=== PATIENT | male | born 1985 | race Caucasian/White ===

== ENCOUNTER 2022-04-28 11:33 | Outpatient (CLI) | payer OTHER | END 2022-04-28 11:34 | disposition home or self-care (01) | LOC: LABBT 11:33 | PROVIDERS: ATTEND Urology | DX: Z20.822 Contact with and (suspected) exposure to COVID-19 (principal) | CPT/HCPCS: U0003; U0005 ==

== ENCOUNTER 2022-04-29 11:26 | Day surgery (SDC) | payer OTHER ==
[2022-04-28 13:50] VITALS: BMI 34.9
[2022-04-29] MEDS ORDERED: Fentanyl 100 MCG/2 ML VIAL ONE (13:04)
[2022-04-29] MEDS ORDERED: Midazolam HCl 2 mg/2 ml Vial ONE (13:22)
[2022-04-29] MEDS ORDERED: fentaNYL Citrate/PF 100 MCG/2 ML SYRINGE ONE (13:22)
[2022-04-29] MEDS ORDERED: Levofloxacin 500 mg/D5W 100 ml Premix Bag ONE (13:29)
[2022-04-29] MEDS ORDERED: Lidocaine 1% PF 5 ML VIAL ONE (13:37)
[2022-04-29] MEDS ORDERED: PROPOFOL 200 MG/20 ML VIAL ONE (13:37)
[2022-04-29] MEDS ORDERED: Ondansetron PF 4 MG/2 ML Vial ONE (13:37)
[2022-04-29] MEDS ORDERED: Meperidine HCl/PF 25 MG/ML VIAL ONE (14:23)
[2022-04-29] MEDS ORDERED: Ketorolac Tromethamine 30 MG/ML VIAL ONE (14:48)
[2022-04-29] MEDS ORDERED: Oxybutynin 5 MG TAB ONE (14:48)
[2022-04-29] MEDS ORDERED: Phenazopyridine HCl 100 MG TAB ONE (14:48)
== END 2022-04-29 16:27 | disposition home or self-care (01) ==
LOC: SDC 11:26
PROVIDERS: ATTEND Urology
PROC: 0T778DZ Dilation of Left Ureter with Intraluminal Device, Via Natural or Artificial Opening Endoscopic (ICD-10-PCS; principal; 2022-04-29)
DX: N20.1 Calculus of ureter (principal); F81.89 Other developmental disorders of scholastic skills; E66.9 Obesity, unspecified; Z68.34 Body mass index [BMI] 34.0-34.9, adult; Z79.1 Long term (current) use of non-steroidal anti-inflammatories (NSAID); Z86.16 Personal history of COVID-19
CPT/HCPCS: 74420; C2617; J1885; J1956; J2175; J2250; J2405; J2704; J3010

== ENCOUNTER 2022-05-17 12:07 | Outpatient (CLI) | payer OTHER | END 2022-05-17 12:08 | disposition home or self-care (01) | LOC: LABBT 12:07 | PROVIDERS: ATTEND Urology | DX: N20.0 Calculus of kidney (principal); Z20.822 Contact with and (suspected) exposure to COVID-19 | CPT/HCPCS: 87811 ==

== ENCOUNTER 2022-05-20 07:45 | Day surgery (SDC) | payer OTHER ==
[2022-05-18 13:34] VITALS: BMI 34.1
[2022-05-27 09:17] LABS: CA Oxalate Monohydrate 100 % (.); Color Brown (.); Stone Weight 119 mg (.)
== END 2022-05-20 09:31 | disposition home or self-care (01) ==
LOC: SDC 07:45
PROVIDERS: ATTEND Urology
DX: N20.0 Calculus of kidney (principal); Z53.8 Procedure and treatment not carried out for other reasons
CPT/HCPCS: 82365; 88300